=== PATIENT | female | born 2000 | race Asian ===

== ENCOUNTER 2020-04-15 18:57 | Emergency (ER) | payer SELFPAY ==
[2020-04-15] MEDS ORDERED: GLUCAGON,HUMAN RECOMB 1 MG INJ IV ONE (19:20)
[2020-04-15] MEDS ORDERED: ONDANSETRON HCL INJ/PF 4 MG/2 ML SDV IV ONE (19:20)
--- NOTE | 2020-04-15 19:21 | ER Document Report ---
ED Medical Screen (RME) - General Chief Complaint: Swallowed Foreign Body Stated Complaint: SWALLOWED FOREIGN BODY Time Seen by Provider: 04/15/20 19:15 Mode of Arrival: Ambulatory Information source: Patient Notes: Patient states that she was eating fish 4 days ago and feels as though bones got caught in her throat. Patient states that there was no coughing or choking episode. Patient denies any nausea or vomiting. Patient states that she has had persistent discomfort in the throat. Patient has been able to eat and drink despite having the foreign object in her throat. I have greeted and performed a rapid initial assessment of this patient. A comprehensive ED assessment and evaluation of the patient, analysis of test results and completion of the medical decision making process will be conducted by additional ED providers. - Related Data Allergies/Adverse Reactions: amoxicillin Allergy (Verified 04/15/20 19:16) Physical Exam - Vital signs Vitals: Temp Pulse Resp BP Pulse Ox 98.3 F 73 18 148/97 H 98 04/15/20 19:01 04/15/20 19:01 04/15/20 19:01 04/15/20 19:01 04/15/20 19:01 - General General appearance: Appears well, Alert Notes: Patient able to manage oral secretions, respirations unlabored Course - Vital Signs Vital signs: Temp Pulse Resp BP Pulse Ox 98.3 F 73 18 148/97 H 98 04/15/20 19:01 04/15/20 19:01 04/15/20 19:01 04/15/20 19:01 04/15/20 19:01
--- NOTE | 2020-04-15 21:48 | ER Document Report ---
Entered by JENN ANDERSON SCRIBE 04/15/202131 Acting as scribe for:IGGY DE LA ROSA DO ED General - General Chief Complaint: Swallowed Foreign Body Stated Complaint: SWALLOWED FOREIGN BODY Time Seen by Provider: 04/15/20 19:15 Primary Care Provider: HO PALOMARES MD [ACTIVE STAFF] - Follow up as needed Mode of Arrival: Ambulatory Information source: Patient Notes: This 20 year old female patient presents to the emergency department today with complaints of possibly swallowing a fish bone. Patient states x4 days ago she was eating fish and she thinks a bone has been stuck high in her throat since. Patient states it moves around, is uncomfortable, and denies pain or difficulty swallowing. Patient states she has tried to get rid of it herself with vinegar or bread. Patient denies any significant medical or surgical history, other than placement of a IUD. - Related Data Allergies/Adverse Reactions: amoxicillin Allergy (Verified 04/15/20 19:16) Past Medical History - General Information source: Patient - Social History Smoking Status: Never Smoker Cigarette use (# per day): No Frequency of alcohol use: None Drug Abuse: Marijuana Family History: Reviewed & Not Pertinent Patient has homicidal ideation: No - Medical History Medical History: Negative Past Surgical History: Reports: None Review of Systems - Review of Systems Constitutional: No symptoms reported EENT: See HPI, Other - object in throat. denies: Throat pain, Difficulty swallowing Cardiovascular: No symptoms reported Respiratory: No symptoms reported Gastrointestinal: No symptoms reported Genitourinary: No symptoms reported Female Genitourinary: No symptoms reported Musculoskeletal: No symptoms reported Skin: No symptoms reported Hematologic/Lymphatic: No symptoms reported Neurological/Psychological: No symptoms reported -: Yes All other systems reviewed and negative Physical Exam - Vital signs Vitals: Temp Pulse Resp BP Pulse Ox 98.3 F 73 18 148/97 H 98 04/15/20 19:01 04/15/20 19:01 04/15/20 19:01 04/15/20 19:01 04/15/20 19:01 - General General appearance: Appears well, Alert - HEENT Head: Normocephalic, Atraumatic Eyes: Normal Pupils: PERRL Pharynx: Normal. No: Potential airway comprom. - Respiratory Respiratory status: No respiratory distress Chest status: Nontender Breath sounds: Normal Chest palpation: Normal - Cardiovascular Rhythm: Regular Heart sounds: Normal auscultation Murmur: No - Abdominal Inspection: Normal Distension: No distension Bowel sounds: Normal Tenderness: Nontender - Extremities General upper extremity: Normal inspection, Normal ROM. No: Edema General lower extremity: Normal inspection, Normal ROM. No: Edema - Neurological Neuro grossly intact: Yes Cognition: Normal Orientation: AAOx4 Maryjane Coma Scale Eye Opening: Spontaneous Gower Coma Scale Verbal: Oriented Gower Coma Scale Motor: Obeys Commands Gower Coma Scale Total: 15 Speech: Normal - Psychological Associated symptoms: Normal affect, Normal mood - Skin Skin Temperature: Warm Skin Moisture: Dry Skin Color: Normal Course - Vital Signs Vital signs: Temp Pulse Resp BP Pulse Ox 98.3 F 73 18 148/97 H 98 04/15/20 19:17 04/15/20 19:01 04/15/20 19:01 04/15/20 19:01 04/15/20 19:01 Discharge - Discharge Clinical Impression: Foreign body sensation in throat Condition: Good Disposition: HOME, SELF-CARE Instructions: Foreign Body ([facility]), Swallowed Foreign Body ([facility]) Additional Instructions: Take the medicine as directed. If not almost completely better by Thursday 04/[address] Palomares (local Ear, nose and throat doctor) who will see in the office if symptoms persist. Please return here sooner for fever, chest pain, shortness of breath or any other problems or concerns. Prescriptions: Sucralfate [Carafate Susp 1 Gm/10 Ml Udcup] 1 gm PO QID 10 Days #1 bottle Sucralfate [Carafate Susp 1 Gm/10 Ml Udcup] 1 gm PO QID 10 Days #1 bottle Referrals: HO PALOMARES MD [ACTIVE STAFF] - Follow up as needed I personally performed the services described in the documentation, reviewed and edited the documentation which was dictated to the scribe in my presence, and it accurately records my words and actions.
[2020-04-15 22:09] VITALS: BP 115/81
== END 2020-04-15 22:10 | disposition home or self-care (01) ==
LOC: ER 18:57
DX: R09.89 Other specified symptoms and signs involving the circulatory and respiratory systems (principal); Z88.0 Allergy status to penicillin; Z97.5 Presence of (intrauterine) contraceptive device
CPT/HCPCS: 99284